=== PATIENT | male | born 1980 | race Two or more races ===

== ENCOUNTER 2022-06-20 06:48 | Emergency (ER) | payer OTHER ==
[~2022-06-20] VITALS: Ht 177.8 cm; Wt 93.0 kg
== END 2022-06-20 12:27 | disposition home or self-care (01) ==
LOC: ER 06:48
DX: R51.9 Headache, unspecified (principal); R19.7 Diarrhea, unspecified; Z88.0 Allergy status to penicillin; Z20.822 Contact with and (suspected) exposure to COVID-19